=== PATIENT | male | born 1960 | race Caucasian/White ===

== ENCOUNTER 2016-07-20 14:26 | Emergency (ER) | payer OTHER ==
[2016-07-20 17:52] LABS: BILIRUBIN NEGATIVE (NEGATIVE); BLOOD 3+ Ery/uL (NEGATIVE); COLOR YELLOW (YELLOW); GLUCOSE (U) NORMAL (NORMAL); KETONE (U) NEGATIVE (NEGATIVE); LEUKOCYTES NEGATIVE Leu/uL (NEGATIVE); NITRITE NEGATIVE (NEGATIVE); PROTEIN 3+ mg/dL (NEGATIVE); pH 5.5 (5.0-9.0)
[2016-07-20 17:56] LABS: CLARITY SLIGHTLY HAZY (CLEAR)
[2016-07-20 17:58] LABS: BACTERIA TRACE; SQUAMOUS EPITHELIAL CELLS RARE; URINARY RBC 20-50; URINARY WBC RARE; YEAST PRESENT
[2016-08-02] MEDS ORDERED: MORPHINE SU4 MG/1 M1 IVP (12:21)
[2016-08-02] MEDS ORDERED: ACETAMINOPHEN325 MG PO (12:21)
[2016-08-02] MEDS ORDERED: TYLENOL650 MG PR (12:21)
[2016-08-02] MEDS ORDERED: MLYLANTA/MAALOX30 ML PO (12:22)
[2016-08-02] MEDS ORDERED: NORCO 5-325 TA1 EACH PO (12:22)
[2016-08-02] MEDS ORDERED: HYDROCODONE-CHLO5 ML PO (12:22)
[2016-08-02] MEDS ORDERED: KEPPRA500 MG PO (12:23)
[2016-08-02] MEDS ORDERED: DUONEB 2.5-0.5M1 AMP NEB ×2 (12:23)
[2016-08-02] MEDS ORDERED: COLACE100 MG PO (12:23)
[2016-08-02] MEDS ORDERED: CYMBALTA 30MG C30 MG PO (12:23)
[2016-08-02] MEDS ORDERED: XARELTO20 MG PO (12:23)
[2016-08-02] MEDS ORDERED: MS CONTIN30 MG PO (12:24)
== END 2016-07-20 18:07 | disposition home or self-care (01) ==
LOC: EDSTATUS 14:26 → FER 14:26
PROVIDERS: Emergency Medicine
DX: M79.605 Pain in left leg (principal); M79.604 Pain in right leg; C41.9 Malignant neoplasm of bone and articular cartilage, unspecified; C78.00 Secondary malignant neoplasm of unspecified lung; C79.31 Secondary malignant neoplasm of brain
CPT/HCPCS: 71260; 81001; J1170; J2405